=== PATIENT | female | born 1995 | race Caucasian/White ===

== ENCOUNTER 2023-07-10 08:40 | Emergency (ER) | payer OTHER ==
[2023-07-10 08:49] VITALS: BP 138/87; PULSE 92; RESP 18; TEMP 98.3; BMI 24.3
[2023-07-10] MEDS ORDERED: IBUPROFEN 600 MG TABLET (FP) PO ONE ×2 (09:04→09:19)
[2023-07-10] MEDS ORDERED: LIDOCAINE 5% TOPICAL PATCH TP ONE (09:16)
[2023-07-10] MEDS ORDERED: LIDOCAINE 4% PATCH TP ONE (09:19)
[2023-07-10] MEDS ORDERED: LIDOCAINE PATCH REMOVAL MC SCH (22:00)
== END 2023-07-10 10:10 | disposition home or self-care (01) ==
LOC: JER 08:40
DX: M25.512 Pain in left shoulder (principal); M54.2 Cervicalgia; V49.40XA Driver injured in collision with unspecified motor vehicles in traffic accident, initial encounter; Y93.I9 Activity, other involving external motion
CPT/HCPCS: 73030-TC-LT-FY; 99283-25